=== PATIENT | male | born 1950 | race Caucasian/White ===

== ENCOUNTER → 2024-04-20 | Outpatient (CLI) | payer OTHER ==
[~2024-04-20] MED LIST: REGADENOSON 0.4 MG/5 ML PF SYG IVP ONE
== END | disposition home or self-care (01) ==
LOC: RAH 09:16
PROVIDERS: ATTEND Internal Medicine Cardiovascular Disease
DX: I20.89 Other forms of angina pectoris (principal); M79.602 Pain in left arm; R20.0 Anesthesia of skin
CPT/HCPCS: 78452; 93017; J2785; A9500 ×2